=== PATIENT | female | born 1980 | race Caucasian/White ===

== ENCOUNTER 2016-08-31 06:40 | Day surgery (SDC) | payer SELFPAY ==
[2016-08-16 14:34] VITALS: BMI 30.7
[~2016-08-31 06:40] MED LIST: BUPIVACAINE HCL/PF 0.25% (2.5MG/ML) 10 ML VIAL IJ ONE
[2016-08-31] MEDS ORDERED: ePHEDrine SULFATE 50 MG/1 ML AMPULE ONE (07:20)
[2016-08-31] MEDS ORDERED: PROPOFOL 20 ML ONE ×3 (07:21→14:09)
[2016-08-31] MEDS ORDERED: ROCURONIUM BROMIDE 50 MG/5 ML VIAL ONE ×3 (07:21)
[2016-08-31] MEDS ORDERED: SUCCINYLCHOLINE CHLORIDE 200 MG/10 ML VIAL ONE (07:21)
[2016-08-31] MEDS ORDERED: MIDAZOLAM HCL 2 MG/2 ML SINGLE DOSE VIAL ONE ×2 (07:21)
[2016-08-31] MEDS ORDERED: DEXAMETHASONE SOD PHOSPHATE 4 MG/1 ML VIAL ONE ×2 (07:24→14:08)
[2016-08-31] MEDS ORDERED: SODIUM CHLORIDE 0.9% P/F 10 ML VIAL IJ ONE ×2 (07:24→10:59)
[2016-08-31] MEDS ORDERED: ceFAZolin SODIUM 1 GM VIAL ONE ×2 (07:24→07:34)
[2016-08-31] MEDS ORDERED: HEPARIN NA (PORCINE) 5,000 UNITS/ML 1ML VIAL ONE (07:35)
[2016-08-31] MEDS ORDERED: ceFAZolin SODIUM 1 GM VIAL IVPB ONE (08:44)
[2016-08-31] MEDS ORDERED: HYDROmorphone HCL/PF 1 MG/ML VIAL (FOR PYXIS CHARGING ONLY) ONE ×2 (09:26→15:47)
[2016-08-31] MEDS ORDERED: BUPIVACAINE HCL/PF 0.25% (2.5MG/ML) 10 ML VIAL ONE (09:43)
[2016-08-31] MEDS ORDERED: ONDANSETRON 4 MG/2 ML VIAL ONE (09:56)
[2016-08-31] MEDS ORDERED: NEOSTIGMINE METHYLSULFATE 0.5 MG/ML - 10 ML MDV ONE (09:56)
[2016-08-31] MEDS ORDERED: GLYCOPYRROLATE 0.2 MG/1 ML VIAL ONE (09:56)
[2016-08-31] MEDS ORDERED: BUPIVACAINE HCL/PF 0.25% (2.5MG/ML) 10 ML VIAL IJ ONE (10:52)
[2016-08-31] MEDS ORDERED: LIDOCAINE HCL 2% JELLY (5 ML/TUBE) ONE (11:39)
[2016-08-31] MEDS ORDERED: BACITRACIN 15 GM TUBE TOPICAL OINTMENT TP ONE (12:36)
--- NOTE | 2016-08-31 13:05 | SURG ---
Surgery Senior Market Intelligence Consultant Note Senior Market Intelligence Consultant: Luis Sheffield PA-C Date of Service: 08/31/16 Procedure: Abdominoplasty --> assist surgeon with closure of abdomen TIME IN: 11:40am TIME OUT: 12:40PM I was present for the entirety of the operative procedure. For further detail, please refer to operative report. Visit type - Case Type Case Type: Elective Cosmetic Proced (DO NOT BILL PATIENT'S INSURANCE)
[2016-08-31] MEDS ORDERED: ONDANSETRON 4 MG/2 ML VIAL IVPB PRN (13:08)
[2016-08-31] MEDS ORDERED: morphine CARPU-JECT 4 MG/1 ML DISP.SYRIN IVPUSH PRN (13:08)
[2016-08-31] MEDS ORDERED: PROMETHAZINE HCL 25 MG/1 ML VIAL IVPUSH PRN (13:12)
--- NOTE | 2016-08-31 13:14 | OP ---
Operative Note - Note: Operative Date: 08/31/16 Pre-Operative Diagnosis: obesity Operation: abdominoplasty with liposuction Findings: none Post-Operative Diagnosis: Same as Pre-op Surgeon: Jae Cheatham Carbon Lamp Cleaner: Luis Sheffield Anesthesia: General Estimated Blood Loss (mls): 100 Drains & Tubes with Location: ANGELA x 2 abdomen
[2016-08-31] MEDS ORDERED: LACTATED RINGERS SOLUTION 1,000 ML IV SCH (13:15)
[2016-08-31] MEDS: LACTATED RINGERS SOLUTION 1,000 ML IV SCH (16:22)
[2016-08-31] MEDS: CEFAZOLIN (PRE-DOCKED) 50 ML IVPB SCH ×2 (16:22→20:38)
[2016-08-31] MEDS: oxyCODONE HCL 5 MG TABLET PO PRN ×2 (16:32→21:57)
[2016-09-01] MEDS: oxyCODONE HCL 5 MG TABLET PO PRN ×3 (02:32→10:23)
[2016-09-01] MEDS: CEFAZOLIN (PRE-DOCKED) 50 ML IVPB SCH ×2 (02:38→10:04)
[2016-09-01] MEDS: LACTATED RINGERS SOLUTION 1,000 ML IV SCH (03:23)
[2016-09-01 08:50] VITALS: BP 105/61; PULSE 75; TEMP 98.7
[2016-09-01] MEDS: HEPARIN NA (PORCINE) 5,000 UNITS/ML 1ML VIAL SQ ONE ×2 (08:54→10:16)
[2016-09-01] MEDS ORDERED: HEPARIN NA (PORCINE) 5,000 UNITS/ML 1ML VIAL ONE (10:12)
[2016-09-01] MEDS ORDERED: HEPARIN NA (PORCINE) 5,000 UNITS/ML 1ML VIAL SQ ONE (10:37)
--- NOTE | 2016-09-01 10:37 | PN ---
Progress Note (short form) - Note Progress Note: POD 1 VSS AF ANGELA thin and appropriate All tissues viable, no collections OOB ambulating, will receive sq heparin OK for discharge
--- NOTE | 2016-09-01 11:47 | OP ---
DATE OF OPERATION: 08/31/2016 TITLE OF PROCEDURE: Abdominoplasty with bilateral flank liposuction. PREOPERATIVE DIAGNOSIS: Abdominal lipodystrophy. POSTOPERATIVE DIAGNOSIS: Abdominal lipodystrophy. ATTENDING SURGEON: Jae Cheatham MD CLAIM CLINICIAN: SUMAYA Velasquez ANESTHESIA: General endotracheal anesthesia. DESCRIPTION OF PROCEDURE: The patient was marked in the holding area, awake and aware of incisions and resulting scars. The patient was given 5000 units of subcutaneous heparin preoperatively. EVER hose and sequential compression stockings were applied. He was brought to the operating room and placed in a supine position. A gram of Ancef was given preoperatively. [place] catheter was placed after induction of anesthesia. Position was carefully checked by surgical and anesthesia teams. She was then prepped and draped in standard surgical fashion. A time-out was called. Patient, procedure, incision sites were verified. The procedure was as follows: An incision was made in the inferior pannicular crease at the inferior border of the resection pattern. Dissection carried down to the level of the abdominal wall fascia. Dissection was then carried along the abdominal wall fascia, suture ligating and cauterizing, perforating blood vessels. The umbilicus was then circumcised and developed on a fibrofatty stalk down to the level of the abdominal wall fascia. Dissection then continued over the abdominoplasty flap to the level of the xiphoid process in the midline costal margins bilaterally. Hemostasis was meticulously achieved. A midline plication was then performed both superior and inferior to the umbilicus first with a series of buried [id number] 1 Prolene suture followed by a running, locking Prolene suture both inferior and superior to the umbilicus. The patient was brought to a flexed position, where at 25 degrees where the skin and fat were transposed, excess was excised. Patient was then tailor-tacked in a closed position. The umbilicus was marked. At this point, the tailor-tacking was removed. The flap was lifted, and the deep surface of the flap was thinned of sub-Scarpas fat with face-up scissors. Hemostasis was meticulously achieved. Copious irrigation was then performed, and the tailor-tacking alison were then reapplied. The umbilicus was translocated through a Star Trek pattern defect that was previously marked. The umbilicus was inset with a series of interrupted buried deep dermal 3-0 Monocryl suture followed by a series of interrupted 4-0 and running 5-0 nylon suture. Prior to closure of the abdominal wall, the size 10 flat ANGELA drains were brought out through lateral extensive reincisions. The right drain was on the superior portion of the abdomen, and the left drain was on the lower inferior portion of the abdomen. Drains were secured with 2-0 silk drain sutures. Infiltration wetting solution was then infiltrated into the bilateral flanks, a total of 500 mL. The wetting solution was infiltrated into each flank. The wetting solution was 1 L of normal saline with 1 ampule of 1:100,000 epinephrine and 20 mL of 1% lidocaine plain. A full 20 minutes was awaiting for the hemostatic effect of the wetting solution, during which closure of the abdominal wall was performed. This was done with a series of interrupted Scarpas layer superficial fascial system buried 2-0 Vicryl suture followed by a series of interrupted 3-0 buried deep dermal Monocryl suture. Prior to running subcuticular suture, liposuction was then performed with a combination of performed with a combination of four 5-mm cannulas using a [employer] power-assisted system, total of 450 mL of lipoaspirate was yielded from each side. End-point was the appearance of bloody fluid and a smooth, even, contour. The dog ears were revised bilaterally. Closure was then finished with a running subcuticular 3-0 Monocryl suture followed by several interrupted 5-0 nylon sutures. Dressings were applied with Steri-Strips and Bacitracin Xeroform to the umbilicus, ABD gauze and a compressive binder. Drain was placed to bulb suction. The patient was awoken from anesthesia, transferred to a bed in flexed position to recovery without complication. Mario [id number]
--- NOTE | 2016-09-03 13:31 | PATH ---
Surgical Pathology Report Patient Name: DUY OLIVER [facility] [place]. Rec. #: [id number] /Age/Gender: 1980 (Age: 36) / F Account: [id number] Location: AMBULATORY SURG Taken: 08/31/2016 Received: 08/31/2016 Reported: 09/03/2016 Physicians: Jae Cheatham Specimen(s) Received ABDOMINAL SKIN AND TISSUE (2313 GRAMS) Clinical History Obesity due to excess calories Final Diagnosis ABDOMINAL SKIN AND TISSUE, ABDOMINOPLASTY: GRSOOSLY UNREMARKABLE SKIN AND SOFT TISSUE (GROSS EXAM). Electronically Signed Zan Garg M.D. Gross Description Received in formalin labeled "abdominal skin and tissue 2313 g" is a 43.0 x 19.0 x 4.8 cm aggregate of multiple coello, irregular, unoriented portions of skin with underlying soft tissue. The epidermal surfaces are unremarkable. Sectioning reveals unremarkable yellow, lobulated adipose tissue. No lesions are identified. No sections are submitted, gross only. 08/31/2016 [facility]08/31/2016
== END 2016-09-01 13:43 | disposition home or self-care (01) ==
LOC: JASUSAT 06:40 → J6S 16:02 → JASUSAT 09-01 13:43
PROVIDERS: ATTEND Plastic Surgery
PROC: 0J083ZZ Alteration of Abdomen Subcutaneous Tissue and Fascia, Percutaneous Approach (ICD-10-PCS; 2016-08-31)
PROC: 0J080ZZ Alteration of Abdomen Subcutaneous Tissue and Fascia, Open Approach (ICD-10-PCS; principal; 2016-08-31 08:00)
DX: E88.1 Lipodystrophy, not elsewhere classified (principal)
CPT/HCPCS: 84703; 88300-TC; 94010; 94760; J1644

== ENCOUNTER 2021-04-04 04:26 | Day surgery (SDC) | payer OTHER ==
[2021-03-30 15:02] VITALS: BMI 34.2
[2021-04-04] MEDS ORDERED: VASOPRESSIN 20 UNITS/ML VIAL IV ONE (08:38)
[2021-04-04] MEDS ORDERED: LIDOCAINE 1%/EPI 1:100000 (20 ML MULTI DOSE VIAL) ONE (08:40)
[2021-04-04] MEDS ORDERED: LIDOCAINE HCL 2% 100 MG/5 ML DISP.SYRIN ONE (10:46)
[2021-04-04] MEDS ORDERED: PROPOFOL 20 ML ONE (10:47)
[2021-04-04] MEDS ORDERED: MIDAZOLAM HCL 2 MG/2 ML SINGLE DOSE VIAL ONE (10:48)
[2021-04-04] MEDS ORDERED: ceFAZolin 2 GRAM PREMIX BAG IVPB ONE (11:06)
[2021-04-04] MEDS ORDERED: LIDOCAINE 1%/EPI 1:100000 (20 ML MULTI DOSE VIAL) INF ONE (11:13)
[2021-04-04] MEDS ORDERED: KETOROLAC TROMETHAMINE 30 MG/1 ML VIAL ONE (11:17)
[2021-04-04] MEDS ORDERED: PROMETHAZINE HCL 25 MG/1 ML VIAL IVPB PRN (11:41)
[2021-04-04] MEDS ORDERED: ACETAMINOPHEN 1000 MG/100 ML BAG IVPB PRN (11:41)
[2021-04-04] MEDS ORDERED: ONDANSETRON 4 MG/2 ML VIAL IVPUSH PRN (11:41)
[2021-04-04] MEDS ORDERED: oxyCODONE HCL 5 MG TABLET PO PRN ×2 (11:41)
[2021-04-04] MEDS ORDERED: LACTATED RINGERS SOLUTION 1,000 ML IV SCH (11:45)
[2021-04-04] MEDS ORDERED: ELECTROLYTE-148 SOLN 1,000 ML IV SCH (11:45)
[2021-04-04 15:08] VITALS: BP 123/83; PULSE 74; TEMP 97.4
== END 2021-04-04 14:45 | disposition home or self-care (01) ==
LOC: JASU-SURG 04:26
PROVIDERS: ATTEND Urology
PROC: 0TSD0ZZ Reposition Urethra, Open Approach (ICD-10-PCS; principal; 2021-04-04 11:00)
DX: N39.3 Stress incontinence (female) (male) (principal)
CPT/HCPCS: 57288; C1771; 81025; 88302-TC; 94760

== ENCOUNTER 2022-01-12 10:47 | Emergency (ER) | payer OTHER ==
[2022-01-12 10:56] VITALS: RESP 18; BMI 27.4
[2022-01-12] MEDS ORDERED: LACTATED RINGERS SOLUTION 1000 ML INFUS.BAG IV ONE (12:22)
[2022-01-12 12:57] LABS: BASO % 0.2 % (0-2.0); EOS % 0.1 % (0-4.5); HEMATOCRIT 40.6 % (32.4-45.2); HEMOGLOBIN 13.4 GM/dL (10.7-15.3); LYMPH % 14.1 % (8-40); MCH 27.2 pg (25.7-33.7); MCHC 32.9 g/dl (32.0-36.0); MEAN CELL VOLUME 82.8 fl (80-96); MEAN PLT VOLUME 7.6 fl (7.5-11.1); MONO % 4.5 % (3.8-10.2); NEUT % 81.1 % (42.8-82.8); PLATELET COUNT 342 10^3/uL (134-434); RBC 4.91 M/mm3 (3.60-5.2); RDW 15.1 % (11.6-15.6); WHITE BLOOD COUNT 10.1 K/mm3 (4.0-10.0)
[2022-01-12 13:02] LABS: INR 1.02 (0.83-1.09); PROTHROMBIN TIME (PATIENT) 11.7 SEC (9.7-13.0)
[2022-01-12 13:05] LABS: ACTIVATED PTT 29.9 SECONDS (25.2-36.5)
[2022-01-12 13:18] LABS: ALBUMIN 3.5 g/dl (3.4-5.0); BLOOD UREA NITROGEN 11.3 mg/dL (7-18); CALCIUM 9.2 mg/dL (8.5-10.1); MAGNESIUM 2.3 mg/dL (1.8-2.4)
[2022-01-12 13:20] LABS: CREATININE 0.8 mg/dL (0.55-1.3)
[2022-01-12 13:22] LABS: BILIRUBIN,TOTAL 0.4 mg/dL (0.2-1); TOT PROT 7.5 g/dl (6.4-8.2)
[2022-01-12 13:26] LABS: PHOSPHOROUS 1.1 mg/dL (2.5-4.9)
[2022-01-12] MEDS ORDERED: POTASSIUM CHLORIDE TABS 20 MEQ TABLET.ER (FP) PO ONE ×2 (13:41→13:46)
[2022-01-12 13:55] LABS: EPI CELLS >36 /uL (0-25.1); HYALINE CASTS 0 /uL (0-3.1); PH,URINE 8.5 (5.0-8.0); URINE APPEARANCE CLEAR; URINE BACTERIA 1078 /uL (0-1359); URINE BILIRUBIN NEGATIVE (NEGATIVE); URINE COLOR YELLOW; URINE GLUCOSE (UA) NEGATIVE (NEGATIVE); URINE KETONE NEGATIVE (NEGATIVE); URINE LEUK ESTERASE 1+ (NEGATIVE); URINE NITRITE NEGATIVE (NEGATIVE); URINE PROTEIN NEGATIVE (NEGATIVE); URINE WBC 28 /uL (0-25.8)
[2022-01-12 15:55] LABS: URINE RBC 27 /uL (0-23.9)
[2022-01-12] MEDS ORDERED: NAPH,MB-DB/K PH,MBDB POWDER PACKET PO ONE (16:35)
[2022-01-12] MEDS ORDERED: NAPH,MB-DB/K PH,MBDB POWDER PACKET ONE (16:39)
[2022-01-12 17:45] VITALS: BP 144/88; PULSE 69; TEMP 97.5
== END 2022-01-12 17:15 | disposition home or self-care (01) ==
LOC: JER 10:47
DX: E83.31 Familial hypophosphatemia (principal); R53.1 Weakness
CPT/HCPCS: 0241U-QW; 36415; 70450-TC; 71045-TC-FY; 80053; 80061; 81003; 83036; 83735; 84100; 84484; 84703; 85025; 85610; 85730; 86850; 86900; 86901; 87086; 93005; 93010; 99285-25